=== PATIENT | female | born 1970 | race Caucasian/White ===

== ENCOUNTER → 2017-03-01 | Outpatient (CLI) | payer BC ==
[~2017-03-01] MED LIST: BARIUM SULFATE 135 ML (E-Z HD) PO ONE; SIMETH/SOD BICARB/CIT AC PKT (E-Z- GAS II) PO ONE
--- NOTE | 2017-03-02 08:27 | RADRPT ---
PROCEDURE: Upper GI series. CLINICAL INDICATION: Abdomen pain. TECHNIQUE: Barium was administered orally and several spot and overhead radiographs were obtained. A total of 0.4 minutes of fluoroscopy time was used. 26 images were obtained. COMPARISON: No prior study is available for comparison. FINDINGS: There is no aspiration. Esophageal motility is normal. There is no esophageal mass, ulcer, or stricture. There is no gastroesophageal reflux. There is a small hiatus hernia. The stomach and duodenum are normal with no ulceration, mass, or mucosal abnormality. IMPRESSION: 1. Small hiatus hernia. 2. Otherwise normal upper GI series. RPTAT: QQ .Adolph Bustillo MD, MD Date Time Electronically viewed and signed by .Adolph Bustillo MD, on 03/02/2017 08:27 .R/
== END | disposition home or self-care (01) ==
LOC: RAD 08:52
PROVIDERS: ATTEND Surgery
DX: K21.9 Gastro-esophageal reflux disease without esophagitis (principal); K44.9 Diaphragmatic hernia without obstruction or gangrene
CPT/HCPCS: 74240; Z7610